=== PATIENT | male | born 1990 | race African-American/Black ===

== ENCOUNTER 2016-11-25 15:25 | Emergency (ER) | payer SELFPAY ==
[2016-11-25 15:25] VITALS: BMI 24.5
== END 2016-11-25 16:30 | disposition left against medical advice (07) ==
LOC: ED 15:25
DX: H02.846 Edema of left eye, unspecified eyelid (principal); Z53.21 Procedure and treatment not carried out due to patient leaving prior to being seen by health care provider

== ENCOUNTER 2016-11-27 02:47 | Emergency (ER) | payer SELFPAY ==
[2016-11-27 02:48] VITALS: BMI 24.5
--- NOTE | 2016-11-27 02:57 | EDPRACDOC ---
- History of Present Illness Onset: 5 DAYS HPI: PT COMPLAINS OF PAINFUL, SWOLLEN, RED AREA LEFT EYEBROW, STATES AREA BECOMING PROGRESSIVELY MORE PAINFULE AND SWOLLEN, STATES NOW EYELIDS ARE SWOLLEN, HAS BEEN HAVING "FEVER" TODAY. PT STATES WOUND HAS BEEN DRAINING "SOME". PT DENIES HEADACHE, N/V/D. HAS NOT TAKEN ANY MEDICATIONS FOR HIS SYMPTOMS. Location: Reports: Face Last Tetanus: Yes Relevent History Of: Reports: None Prior Abscess: Reports: None Pain: Reports: Severe Quality: Reports: Draining, Painful, Red Associated Signs & Symptoms: Reports: Fever. Denies: Chills, Proximal Streaking <Corbin Bee - Last Filed: 11/27/16 02:55> <Hossein Hollingsworth - Last Filed: 11/27/16 04:39> - General Information Chief Complaint: Wound Stated Complaint: INFECTED EYEBROW Time Seen by Provider: 11/27/16 02:52 Home Medications: Home Medications Cephalexin Monohydrate [Keflex] 500 mg PO Q8H #30 cap 09/20/16 Ibuprofen Tablet [Motrin] 600 mg PO Q6H #30 tab 09/20/16 Oxycodone Immediate Release [Oxycodone Immediate Release (OxyIR)] 5 mg PO Q6H PRN #20 tab 10/25/16 Sulfamethoxazole/Trimethoprim [Bactrim Ds Tablet] 1 tab PO BID #14 tab 10/25/16 Cephalexin Monohydrate [Keflex] 500 mg PO QID #28 cap 10/27/16 Oxycodone Immediate Release [Oxycodone Immediate Release (OxyIR)] 5 mg PO Q6H PRN #15 tab 10/27/16 Cephalexin Monohydrate [Keflex] 500 mg PO Q8H #30 cap 11/27/16 Oxycodone HCl [Oxycodone Immediate Release] 10 mg PO Q6H PRN #30 tab 11/27/16 Sulfamethoxazole/Trimethoprim [Bactrim Ds Tablet] 1 tab PO BID #20 tab 11/27/16 Allergies/Adverse Reactions: Allergies Allergy/AdvReac Type Severity Reaction Status Date / Time acetaminophen [From Tylenol] Allergy Unknown Verified 11/27/16 02:58 - Treatment Prior to ED Arrival 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 Ibuprofen/Acetaminophen (Dose/ Ibuprofen 600mg at 0000 Time) EMS Treatment BLS IV No <Hossein Hollingsworth - Last Filed: 11/27/16 04:39> ED Past Medical History - History Reviewed Yes Nurses notes reviewed and agree except as marked No Past Medical History: Yes Patient has no past medical history - Patient Medical History Psychological History: Denies: Depression Surgical History: Reports: Other (R KNEE) - Social Medical History Smoking Status: Heavy tobacco smoker (5 or more cigarettes/day or daily pipe/ cigar) ETOH: None Substance Abuse: None <Corbin Bee - Last Filed: 11/27/16 02:55> EDM Review of Systems - Review of Systems Constitutional: Fever Eyes: negative: Blurred Vision, Double Vision, Discharge, Pain, Redness Ears: negative: Drainage, Pain Throat: negative: Pain Nose: negative: Congestion, Discharge Respiratory: negative: Cough, Shortness of Breath, Wheezing Cardiovascular: negative: Chest Pain, Palpitations Gastrointestinal: negative: Diarrhea, Nausea, Pain, Vomiting Neurological: negative: Dizziness, Headache, Numbness, Weakness Musculoskeletal: No Symptoms Reported Integumentary: Wound <Corbin Bee - Last Filed: 11/27/16 02:55> - Physical Exam Constitutional: Alert (Awake), No apparent distress Oriented to: Time, Person, Place Last recorded Vital Signs: Oxygen Pulse Oxygen Saturation O2 Device Oxygen Flow Rate Fraction of Inspired Oxygen ( FIO2) - HEENT Head: Normal ( normocephalic) Eye Exam: Edema (UPPER AND LOWER LIDS ERYTHEMATOUS AND EDEMATOUS, TENDER TO TOUCH, EOMI) Oropharynx: Normal (Pharynx:Moist without exudate,Gums-no swelling) Tympanic Membrane: Normal ENT EAC: Normal TMJ: Normal Nose: No Symptoms Reported (septum midline) Neck: Normal (FROM, trachea at midline) - Respiratory/Cardiovascular Respiratory: Normal - CTA (BBS clear to auscultation without adventitious sounds ) Cardiovascular: Normal (RRR without murmur, gallop or rub) - Neurologic Memory Impaired: Normal Motor Function: Normal (Normal tone, Pulses 2+ No cyanosis or edema, FROM) Cranial Nerve: Normal (CN II-X11 intact sensation, strength 5/5) Cerebellar: Normal Mood Description: Normal Perception: Normal <Crobin Bee - Last Filed: 11/27/16 02:55> - Physical Exam Last recorded Vital Signs: Last Vital Signs Temp 99.2 F 11/27/16 02:54 Pulse 80 11/27/16 02:54 Resp 20 11/27/16 02:54 BP 160/93 11/27/16 02:54 Pulse Ox 100 11/27/16 02:54 Oxygen Pulse Oxygen Saturation 100 O2 Device Room Air Oxygen Flow Rate Fraction of Inspired Oxygen ( FIO2) <Hossein Hollingsworth - Last Filed: 11/27/16 04:39> ED Abscess/Mass Exam - Integumentary Skin: Warm, Dry Mass: Size (2), Red, Tender, Warm, Firm, Pustule, Extensive Cellulitis ( CELLULITIS EXTENDING TO BOTH LIDS OF LEFT EYE) Lymphatics: Normal <Corbin Bee - Last Filed: 11/27/16 02:55> ED Procedures - Incision and Drainage Informed of risks, benefits and alternatives described.: Yes Informed Consent Signed: Verbal Site: LEFT EYEBROW Indication: Painful Mass Anesthetic: Lidocaine, with Epi Prep: Sterile Full Body Drape, Sterile Local Drape, Betadine Blade Size: 11 Incised Site drained: Reports: Blood, Pus Incised site was: Irrigated, Not Packed with Iodoform <Hossein Hollingsworth - Last Filed: 11/27/16 04:39> - Results 11/27/16 03:10 11/27/16 03:10 Lab Results: WBC 10.1 xk/uL (3.8-10.8) 11/27/16 03:10 RBC 4.54 xM/uL (4.70-6.10) L 11/27/16 03:10 Hgb 13.8 g/dL (14.0-18.0) L 11/27/16 03:10 Hct 40.3 % (42-52) L 11/27/16 03:10 MCV 89 fL (80-94) 11/27/16 03:10 MCH 30.3 pg (27-32) 11/27/16 03:10 MCHC 34.1 g/dl (33-36) 11/27/16 03:10 RDW 13.5 % (11.5-14.5) 11/27/16 03:10 Plt Count 245 xk/uL (130-400) 11/27/16 03:10 MPV 8.4 fL (7.4-10.4) 11/27/16 03:10 Neut % (Auto) 55.1 % (45-76) 11/27/16 03:10 Lymph % (Auto) 32.2 % (17-44) 11/27/16 03:10 [place] % (Auto) 8.9 % (3-10) 11/27/16 03:10 Eos % (Auto) 3.3 % (0-5) 11/27/16 03:10 Baso % (Auto) 0.5 % (0-2) 11/27/16 03:10 Absolute Neuts (auto) 5.56 xk/uL (1.7-8.2) 11/27/16 03:10 Absolute Lymphs (auto) 3.23 xk/uL (0.65-4.75) 11/27/16 03:10 Sodium 140 mEq/L (137-146) 11/27/16 03:10 Potassium 4.0 mEq/L (3.5-5.1) 11/27/16 03:10 Chloride 102 mEq/L (98-107) 11/27/16 03:10 Carbon Dioxide 32 mMOL/L (22-33) 11/27/16 03:10 Anion Gap 10 mEq/L (8-16) 11/27/16 03:10 BUN 5 MG/DL (9-20) L 11/27/16 03:10 Creatinine 0.80 MG/DL (0.66-1.25) 11/27/16 03:10 Estimated GFR (MDRD) > 60 mL/min (>=60) 11/27/16 03:10 Glucose 89 MG/DL (70-99) 11/27/16 03:10 Calculated Osmolality 265 MOs/Kg (270-290) L 11/27/16 03:10 Calcium 8.7 MG/DL (8.4-10.2) 11/27/16 03:10 Corrected Calcium 8.9 MG/DL (8.4-10.2) 11/27/16 03:10 Total Bilirubin 0.3 MG/DL (0.2-1.3) 11/27/16 03:10 AST 26 IU/L (17-59) 11/27/16 03:10 ALT 29 IU/L (21-72) 11/27/16 03:10 Alkaline Phosphatase 62 IU/L (38-126) 11/27/16 03:10 Total Protein 7.5 G/DL (6.3-8.2) 11/27/16 03:10 Albumin 3.8 G/DL (3.5-5.0) 11/27/16 03:10 Lab Results 11/27/16 11/27/16 03:10 03:10 WBC 10.1 RBC 4.54 L Hgb 13.8 L Hct 40.3 L MCV 89 MCH 30.3 MCHC 34.1 RDW 13.5 Plt Count 245 MPV 8.4 Neut % (Auto) 55.1 Lymph % (Auto) 32.2 [place] % (Auto) 8.9 Eos % (Auto) 3.3 Baso % (Auto) 0.5 Absolute Neuts (auto) 5.56 Absolute Lymphs (auto) 3.23 Sodium 140 Potassium 4.0 Chloride 102 Carbon Dioxide 32 Anion Gap 10 BUN 5 L Creatinine 0.80 Estimated GFR (MDRD) > 60 Glucose 89 Calculated Osmolality 265 L Calcium 8.7 Corrected Calcium 8.9 Total Bilirubin 0.3 AST 26 ALT 29 Alkaline Phosphatase 62 Total Protein 7.5 Albumin 3.8 <Hossein Hollingsworth - Last Filed: 11/27/16 04:39> <Corbin Bee - Last Filed: 11/27/16 02:55> Decision Time to Discharge: 04:30 - Departure Yes I personally saw and evaluated the patient. Disposition: Home Education/Counseling Given To: Patient Education/Counseling Given Regarding: Diagnosis, Treatment, Prognosis, Follow Up <Hossein Hollingsworth - Last Filed: 11/27/16 04:39> - Departure Condition: Stable Final Diagnosis: Facial abscess Periorbital cellulitis Qualifiers: Laterality: left Qualified Code(s): L03.213 - Periorbital cellulitis Instructions: Abscess Incision and Drainage (ED) Referrals: None,No Provider [Primary Care Provider] - One Week Zeus Hernandez MD [Staff Physician] - One Week Prescriptions: Cephalexin Monohydrate [Keflex] 500 mg PO Q8H #30 cap Oxycodone HCl [Oxycodone Immediate Release] 10 mg PO Q6H PRN #30 tab PRN Reason: Pain Sulfamethoxazole/Trimethoprim [Bactrim Ds Tablet] 1 tab PO BID #20 tab Additional Instructions: RETURN IN 2 DAYS FOR WOUND CHECK AND PACKING REMOVAL
[2016-11-27] MEDS ORDERED: ONDANSETRON HCL 4 MG/2 ML VIAL IV ONE (02:59)
[2016-11-27] MEDS ORDERED: MORPHINE 4 MG/ML INJECTION IV ONE (02:59)
[2016-11-27] MEDS ORDERED: NS 1,000 ML IV ONE (02:59)
[2016-11-27] MEDS ORDERED: Pharmacy Review for Metformin - IV Contrast Given SCH (03:00)
[2016-11-27 03:12] VITALS: TEMP 99.2
[2016-11-27 03:23] LABS: AUTOMATED BASOPHIL 0.5 % (0-2); AUTOMATED EOSINOPHIL 3.3 % (0-5); AUTOMATED LYMPH 32.2 % (17-44); AUTOMATED MONOCYTE 8.9 % (3-10); AUTOMATED NEUTROPHIL 55.1 % (45-76); MPV 8.4 fL (7.4-10.4)
[2016-11-27 03:38] LABS: BLOOD UREA NITROGEN 5 MG/DL (9-20); CALC CORRECTED 8.9 MG/DL (8.4-10.2); CALCIUM 8.7 MG/DL (8.4-10.2); CALCULATED OSMOLALITY 265 MOs/Kg (270-290); CHLORIDE 102 mEq/L (98-107); GLUCOSE 89 MG/DL (70-99); SODIUM LEVEL 140 mEq/L (137-146); TOTAL PROTEIN 7.5 G/DL (6.3-8.2)
[2016-11-27] MEDS ORDERED: Lidocaine 2%-Epinephrine 1:100,000 20ml vial INF ONE (03:57)
--- NOTE | 2016-11-27 04:14 | DIRPT ---
CLINICAL DATA: LEFT supraorbital swelling for 5 days, assess for abscess. EXAM: CT MAXILLOFACIAL WITH CONTRAST TECHNIQUE: Multidetector CT imaging of the maxillofacial structures was performed with intravenous contrast. Multiplanar CT image reconstructions were also generated. A small metallic BB was placed on the right bahai in order to reliably differentiate right from left. CONTRAST: 100 cc Isovue 370 COMPARISON: None. FINDINGS: LEFT periorbital soft tissue swelling, with fat stranding. Superimposed 18 x 11 mm (transverse by AP) faintly rim enhancing fluid collection, within 2 mm of the skin surface. No subcutaneous gas or radiopaque foreign bodies. Enhancing preseptal soft tissue without postseptal extent. Ocular globes intact, lenses are located. Preservation of postseptal fat. Normal appearance of the optic nerve sheath complexes and extra-ocular muscles. Included intracranial contents are normal. No destructive bony lesions or facial fracture. Scattered dental caries. Paranasal sinuses and imaged mastoid air cells are well aerated. IMPRESSION: LEFT periorbital cellulitis with superimposed 18 x 11 mm abscess, 2 mm deep to the skin surface. No postseptal inflammation. Electronically Signed By: Danyell Adams M.D. On: 11/27/2016 04:11
[2016-11-27] MEDS ORDERED: HYDROmorphone 1 MG INJECTION ONE ×2 (04:22→04:27)
[2016-11-27 06:14] VITALS: BP 129/62; PULSE 89
== END 2016-11-27 06:30 | disposition home or self-care (01) ==
LOC: ED 02:47
DX: L02.01 Cutaneous abscess of face (principal); L03.213 Periorbital cellulitis
CPT/HCPCS: 10060; 36415; 70487; 80053; 85025; 87070; 87075; 87077; 87186; 96361; 96365; 96366; 96375; 96376; 99283; A9698; J1170; J2270; J2405; J3370; J3490; J7060

== ENCOUNTER 2016-12-03 15:42 | Observation (INO) | payer SELFPAY ==
[2016-12-03 16:11] VITALS: BMI 23.5
[2016-12-03 16:26] LABS: ALL NEG? NO
[2016-12-03 16:29] LABS: AUTOMATED BASOPHIL 0.5 % (0-2); AUTOMATED EOSINOPHIL 2.4 % (0-5); AUTOMATED LYMPH 39.2 % (17-44); AUTOMATED MONOCYTE 9.6 % (3-10); AUTOMATED NEUTROPHIL 48.3 % (45-76)
[2016-12-03 16:44] LABS: MDMA* NEG (NEGATIVE); METHAMPHETAMINES *POSITIVE* (NEGATIVE); OXYCODONE NEG (NEGATIVE)
[2016-12-03 17:00] LABS: LEUKOCYTES/URINE NEG (NEGATIVE); NITRITE/URINE NEG (NEGATIVE); URINE OCCULT BLOOD NEG (NEG/TRACE)
[2016-12-03 17:02] LABS: BLOOD UREA NITROGEN 9 MG/DL (9-20); CALCIUM 9.6 MG/DL (8.4-10.2); CALCULATED OSMOLALITY 271 MOs/Kg (270-290); CHLORIDE 106 mEq/L (98-107); GLUCOSE 81 MG/DL (70-99); SODIUM LEVEL 142 mEq/L (137-146); TOTAL PROTEIN 7.6 G/DL (6.3-8.2)
[2016-12-03 17:02] LABS: AMORPHOUS 3+; RBC/URINE 0-2 (0-2); WBC/URINE 0-2 (0-2)
[2016-12-03 17:10] LABS: ETOH-MGDL < 10 mg/dL
--- NOTE | 2016-12-03 18:40 | EDPRACDOC ---
- General Information Chief Complaint: Psychiatric Illness Stated Complaint: IVC PSYCH Time Seen by Provider: 12/03/16 18:24 Information Source: Patient Mode of Arrival: Law Enforcement Home Medications: Home Medications Cephalexin Monohydrate [Keflex] 500 mg PO Q8H #30 cap 11/27/16 Oxycodone HCl [Oxycodone Immediate Release] 10 mg PO Q6H PRN #30 tab 11/27/16 Sulfamethoxazole/Trimethoprim [Bactrim Ds Tablet] 1 tab PO BID #20 tab 11/27/16 Allergies/Adverse Reactions: Allergies Allergy/AdvReac Type Severity Reaction Status Date / Time acetaminophen [From Tylenol] Allergy Unknown Verified 11/27/16 02:58 - History of Present Illness Onset: unknown HPI: PT PRESENTS TO ED BY WHIT FROM [facility] WITH IVC PAPERS STATING SUICIDAL IDEATIONS WITH PLAN TO OVERDOSE. PT STATES THE INITIAL THING THAT GOT HIM ATTENTION WAS HE TOOK A VIDEO OF HIMSELF CUTTING HIS RIGHT FOREARM AND SENT IT TO HIS FAMILY MEMBERS ON FACEBOOK, THAT GOT THE DEVICE PROCESSING ENGINEER CALLED AND HE WAS TAKEN TO [facility] AND EVALUATED, THEN IVC DUE TO SI. PT TELLS ME THAT HE HAS BEEN USING IV PAIN MEDS AND EXPERIMENTING TO THE POINT HE BLACKS OUT TO SEE HOW MUCH IT WOULD TAKE TO OVERDOSE. Reason for Seeking Treatment: 911 Call Presents With: Reports: Depression, Anxiety, Unclear Thinking, Suicidal Ideation Expresses: Reports: Suicidal Intent, Suicidal Plan Suicidal Plan: Reports: Overdose Stressors: Reports: Relationships Relevant History: Reports: Depression, Anxiety Medication Compliance: N/A Able to Care for Self: No Able to Control Self: No Associated Signs and Symptoms: Reports: Anger, Depression, Hopeless, Other ( NARCOTIC USE) ED Past Medical History - History Reviewed Yes Nurses notes reviewed and agree except as marked Travel Outside of [place] in the Last 3 Months?: No - Patient Medical History Psychological History: Reports: Depression, Anxiety, Substance Use Disorder Surgical History: Reports: Other (R KNEE) - Social Medical History Smoking Status: Heavy tobacco smoker (5 or more cigarettes/day or daily pipe/ cigar) ETOH: None Substance Abuse: None Lives With: Other Lives In: Home EDM Review of Systems - Review of Systems ROS Negative Except as Marked: Yes All systems reviewed and were negative except as marked Constitutional: No Symptoms Reported. negative: Fever, Chills, Weakness, Fatigue, Loss of Appetite Eyes: No Symptoms Reported. negative: Redness, Blurred Vision, Double Vision, Discharge, Pain, Light Sensitive, Photophobia Ears: No Symptoms Reported. negative: Pain, Hearing Loss, Drainage, Ear Pulling Throat: No Symptoms Reported. negative: Pain, Swelling Nose: No Symptoms Reported. negative: Congestion, Bleeding, Discharge, Injection, Swelling, Deformity, Ecchymosis, Tender, Abrasion, Laceration Mouth: No Symptoms Reported. negative: Pain, Drooling Respiratory: No Symptoms Reported. negative: Cough, Brassy Cough, Barky Cough, Shortness of Breath, Wheezing, Hemoptysis Cardiovascular: No Symptoms Reported. negative: Chest Pain, Palpitations, Syncope, Edema, Orthopnea, PND, Skin Mottling, Cyanosis Gastrointestinal: No Symptoms Reported. negative: Pain, Constipation, Nausea, Vomiting, Diarrhea, Melena, Formula Intolerance Genitourinary: No Symptoms Reported. negative: Dysuria, Hematuria, Frequency, Discharge, Bleeding, Testicular Pain, Neurological: No Symptoms Reported. negative: Headache, Dizziness, Seizure, Numbness, Weakness, Speech Difficulty, Gait Difficulty Musculoskeletal: No Symptoms Reported. negative: Neck, Chestwall, Ribs, Back, Shoulder, Arm, Elbow, Forearm, Wrist, Hand, Pelvis, Hip, Femur, Knee, Leg, Ankle , Foot Integumentary: Other (HEAING WOUNDS TO RIGHT FOREARM FROM CUTTING). negative: Bruising, Itching, Rash, Wound Allergic/Immunologic: No Symptoms Reported. negative: Hives, Itching Hematologic: No Symptoms Reported. negative: Lymphadenopathy, Easy Bruising, Easy Bleeding Endocrine: No Symptoms Reported. negative: Weight Gain, Weight Loss Psychiatric: Anxiety, Depression, Suicidal. negative: Hallucinations, Insomnia - Physical Exam Constitutional: No apparent distress, Alert (Awake) Oriented to: Time, Person, Place Last recorded Vital Signs: Last Vital Signs Temp 97.8 F 12/03/16 16:09 Pulse 72 12/03/16 18:14 Resp 18 12/03/16 18:14 BP 138/71 12/03/16 18:14 Pulse Ox 99 12/03/16 18:14 Oxygen Pulse Oxygen Saturation 99 O2 Device Room Air Oxygen Flow Rate Fraction of Inspired Oxygen ( FIO2) - HEENT Head: Normal ( normocephalic) Eye Exam: Normal (PERRL, EOMI, Sclera white) Oropharynx: Normal (Pharynx:Moist without exudate,Gums-no swelling) Tympanic Membrane: Normal ENT EAC: Normal TMJ: Normal Nose: No Symptoms Reported (septum midline) Neck: Normal (FROM, trachea at midline) - Respiratory/Cardiovascular Respiratory: Normal - CTA (BBS clear to auscultation without adventitious sounds ) Cardiovascular: Normal (RRR without murmur, gallop or rub) - GI Auscultation: Normal (NABS) Palpation: Normal (Soft,No rebound or guarding, non distended) Tenderness: Non tender Gregorio's Sign: Negative - Bladder: Normal - Musculoskeletal Back: Normal (Non-Tender) Extremities: Normal (Normal tone, Pulses 2+ No cyanosis or edema, FROM) - Integumentary Skin: Normal, Warm, Dry Lymphatics: Normal (no adenopathy) - Neurologic Memory Impaired: Normal Motor Function: Normal (Normal tone, Pulses 2+ No cyanosis or edema, FROM) Cranial Nerve: Normal (CN II-X11 intact sensation, strength 5/5) Cerebellar: Normal Mood Description: Depressed, Flat Thought: Coherent Perception: Normal Initial Evaluation Apperance: Stated Age Attitude: Cooperative Mood: Sad Affect: Congruent w/ mood, Depressed Insight: Impaired Judgement: Impaired Depressive Symptoms: Reports: Poor Energy, Sadness, Sleep changes, Worthlessness Delusion Description: Reports: Not Present Hallucination Type: Reports: None Hallucinations Severity: Reports: None Hallucinations affecting more than one sensory system: No Recommend /or Refer: Involuntary Commitment - Differential Diagnosis Bipolar disorder, Conversion disorder, Depression, Homicidal, Substance abuse, Suicidal - Results 12/03/16 16:13 12/03/16 16:13 WBC 7.9 xk/uL (3.8-10.8) 12/03/16 16:13 RBC 4.68 xM/uL (4.70-6.10) L 12/03/16 16:13 Hgb 14.1 g/dL (14.0-18.0) 12/03/16 16:13 Hct 41.7 % (42-52) L 12/03/16 16:13 MCV 89 fL (80-94) 12/03/16 16:13 MCH 30.0 pg (27-32) 12/03/16 16:13 MCHC 33.7 g/dl (33-36) 12/03/16 16:13 RDW 13.7 % (11.5-14.5) 12/03/16 16:13 Plt Count 290 xk/uL (130-400) 12/03/16 16:13 MPV 8.0 fL (7.4-10.4) 12/03/16 16:13 Neut % (Auto) 48.3 % (45-76) 12/03/16 16:13 Lymph % (Auto) 39.2 % (17-44) 12/03/16 16:13 [place] % (Auto) 9.6 % (3-10) 12/03/16 16:13 Eos % (Auto) 2.4 % (0-5) 12/03/16 16:13 Baso % (Auto) 0.5 % (0-2) 12/03/16 16:13 Absolute Neuts (auto) 3.79 xk/uL (1.7-8.2) 12/03/16 16:13 Absolute Lymphs (auto) 3.08 xk/uL (0.65-4.75) 12/03/16 16:13 Sodium 142 mEq/L (137-146) 12/03/16 16:13 Potassium 4.1 mEq/L (3.5-5.1) 12/03/16 16:13 Chloride 106 mEq/L (98-107) 12/03/16 16:13 Carbon Dioxide 27 mMOL/L (22-33) 12/03/16 16:13 Anion Gap 13 mEq/L (8-16) 12/03/16 16:13 BUN 9 MG/DL (9-20) 12/03/16 16:13 Creatinine 0.80 MG/DL (0.66-1.25) 12/03/16 16:13 Estimated GFR (MDRD) > 60 mL/min (>=60) 12/03/16 16:13 Glucose 81 MG/DL (70-99) 12/03/16 16:13 Calculated Osmolality 271 MOs/Kg (270-290) 12/03/16 16:13 Calcium 9.6 MG/DL (8.4-10.2) 12/03/16 16:13 Total Bilirubin 0.3 MG/DL (0.2-1.3) 12/03/16 16:13 AST 28 IU/L (17-59) 12/03/16 16:13 ALT 43 IU/L (21-72) 12/03/16 16:13 Alkaline Phosphatase 61 IU/L (38-126) 12/03/16 16:13 Total Protein 7.6 G/DL (6.3-8.2) 12/03/16 16:13 Albumin 4.2 G/DL (3.5-5.0) 12/03/16 16:13 Urine Color Yellow 12/03/16 16:15 Urine Clarity [place] 12/03/16 16:15 Urine pH 6.0 (5.0-8.0) 12/03/16 16:15 Ur Specific [place] 1.020 (1.003-1.035) 12/03/16 16:15 Urine Protein Neg (NEG/TRACE) 12/03/16 16:15 Urine Glucose (UA) Neg (NEGATIVE) 12/03/16 16:15 Urine Ketones Neg (NEGATIVE) 12/03/16 16:15 Urine Occult Blood Neg (NEG/TRACE) 12/03/16 16:15 Urine Nitrite Neg (NEGATIVE) 12/03/16 16:15 Urine Bilirubin Neg (NEGATIVE) 12/03/16 16:15 Urine Urobilinogen <2.0 MG/DL (0-1) 12/03/16 16:15 Ur Leukocyte Esterase Neg (NEGATIVE) 12/03/16 16:15 Urine RBC 0-2 (0-2) 12/03/16 16:15 Urine WBC 0-2 (0-2) 12/03/16 16:15 Ur Epithelial Cells Occ 12/03/16 16:15 Amorphous Sediment 3+ 12/03/16 16:15 Urine Bacteria Few (NEG/FEW) 12/03/16 16:15 Urine Opiates Screen Neg (NEGATIVE) 12/03/16 16:15 Ur Oxycodone Screen Neg (NEGATIVE) 12/03/16 16:15 Urine Methadone Screen Neg (NEGATIVE) 12/03/16 16:15 Ur Barbiturates Screen Neg (NEGATIVE) 12/03/16 16:15 Ur Tricyclics Screen Neg (NEGATIVE) 12/03/16 16:15 Ur Phencyclidine Scrn Neg (NEGATIVE) 12/03/16 16:15 Ur Amphetamines Screen *positive* (NEGATIVE) H 12/03/16 16:15 U Methamphetamines Scrn *positive* (NEGATIVE) H 12/03/16 16:15 Urine MDMA Screen Neg (NEGATIVE) 12/03/16 16:15 U Benzodiazepines Scrn Neg (NEGATIVE) 12/03/16 16:15 Urine Cocaine Screen *positive* (NEGATIVE) H 12/03/16 16:15 Ur THC Screen Neg (NEGATIVE) 12/03/16 16:15 Plasma/Serum Ethyl Alc % (<0.01) 12/03/16 16:13 Lab Results 12/03/16 12/03/16 12/03/16 16:15 16:15 16:13 WBC 7.9 RBC 4.68 L Hgb 14.1 Hct 41.7 L MCV 89 MCH 30.0 MCHC 33.7 RDW 13.7 Plt Count 290 MPV 8.0 Neut % (Auto) 48.3 Lymph % (Auto) 39.2 [place] % (Auto) 9.6 Eos % (Auto) 2.4 Baso % (Auto) 0.5 Absolute Neuts (auto) 3.79 Absolute Lymphs (auto) 3.08 Sodium Potassium Chloride Carbon Dioxide Anion Gap BUN Creatinine Estimated GFR (MDRD) Glucose Calculated Osmolality Calcium Total Bilirubin AST ALT Alkaline Phosphatase Total Protein Albumin Urine Color Yellow Urine Clarity [place] Urine pH 6.0 Ur Specific [place] 1.020 Urine Protein Neg Urine Glucose (UA) Neg Urine Ketones Neg Urine Occult Blood Neg Urine Nitrite Neg Urine Bilirubin Neg Urine Urobilinogen <2.0 Ur Leukocyte Esterase Neg Urine RBC 0-2 Urine WBC 0-2 Ur Epithelial Cells Occ Amorphous Sediment 3+ Urine Bacteria Few Urine Opiates Screen Neg Ur Oxycodone Screen Neg Urine Methadone Screen Neg Ur Barbiturates Screen Neg Ur Tricyclics Screen Neg Ur Phencyclidine Scrn Neg Ur Amphetamines Screen *positive* H U Methamphetamines Scrn *positive* H Urine MDMA Screen Neg U Benzodiazepines Scrn Neg Urine Cocaine Screen *positive* H Ur THC Screen Neg Plasma/Serum Ethyl Alc 12/03/16 16:13 WBC RBC Hgb Hct MCV MCH MCHC RDW Plt Count MPV Neut % (Auto) Lymph % (Auto) [place] % (Auto) Eos % (Auto) Baso % (Auto) Absolute Neuts (auto) Absolute Lymphs (auto) Sodium 142 Potassium 4.1 Chloride 106 Carbon Dioxide 27 Anion Gap 13 BUN 9 Creatinine 0.80 Estimated GFR (MDRD) > 60 Glucose 81 Calculated Osmolality 271 Calcium 9.6 Total Bilirubin 0.3 AST 28 ALT 43 Alkaline Phosphatase 61 Total Protein 7.6 Albumin 4.2 Urine Color Urine Clarity Urine pH Ur Specific [place] Urine Protein Urine Glucose (UA) Urine Ketones Urine Occult Blood Urine Nitrite Urine Bilirubin Urine Urobilinogen Ur Leukocyte Esterase Urine RBC Urine WBC Ur Epithelial Cells Amorphous Sediment Urine Bacteria Urine Opiates Screen Ur Oxycodone Screen Urine Methadone Screen Ur Barbiturates Screen Ur Tricyclics Screen Ur Phencyclidine Scrn Ur Amphetamines Screen U Methamphetamines Scrn Urine MDMA Screen U Benzodiazepines Scrn Urine Cocaine Screen Ur THC Screen Plasma/Serum Ethyl Alc - Departure Disposition: Admit to Condition: Stable Final Diagnosis: Moderate major depression, single episode, Suicidal ideations, Narcotic abuse Instructions: Depression (GEN), Narcotic Abuse (ED), Suicide Prevention for Adults (ED) Education/Counseling Given To: Patient Education/Counseling Given Regarding: Diagnosis, Treatment, Prognosis, Follow Up Referrals: None,No Provider [Primary Care Provider] - One Week Prescriptions: No Action Cephalexin Monohydrate [Keflex] 500 mg PO Q8H #30 cap Oxycodone HCl [Oxycodone Immediate Release] 10 mg PO Q6H PRN #30 tab PRN Reason: Pain Sulfamethoxazole/Trimethoprim [Bactrim Ds Tablet] 1 tab PO BID #20 tab
[2016-12-03] MEDS ORDERED: IBUPROFEN 400 MG TAB PO PRN (18:49)
[2016-12-03] MEDS ORDERED: PROMETHAZINE 25 MG TAB PO PRN (18:49)
[2016-12-03] MEDS ORDERED: ZOLPIDEM TARTRATE 5 MG TAB PO PRN (18:49)
[2016-12-03] MEDS ORDERED: MAGNESIUM HYDROXIDE 30 ML BOTTLE PO PRN (18:49)
[2016-12-03] MEDS ORDERED: ONDANSETRON HCL 4 MG ODT TAB PO PRN (18:49)
[2016-12-03] MEDS ORDERED: LORAZEPAM 1 MG TAB PO PRN (18:49)
[2016-12-03] MEDS ORDERED: BISACODYL 5 MG TAB PO PRN (18:49)
[2016-12-03] MEDS ORDERED: GUAIFENESIN 200 MG/10 ML UDC PO PRN (18:49)
[2016-12-03] MEDS ORDERED: NICOTINE 21 MG PATCH TOP SCH (19:00)
[2016-12-03] MEDS ORDERED: DIAZEPAM 5 MG TAB PO ONE (20:15)
[2016-12-03] MEDS ORDERED: DICYCLOMINE 10 MG/5 ML SYRUP PO ONE (21:58)
[2016-12-03] MEDS ORDERED: DICYCLOMINE 10 MG CAP PO ONE (23:00)
--- NOTE | 2016-12-04 08:16 | EDTUNOTE ---
Initial Evaluation Apperance: Stated Age Attitude: Cooperative Mood: Sad Affect: Congruent w/ mood, Depressed Insight: Impaired Judgement: Impaired Depressive Symptoms: Reports: Poor Energy, Sadness, Sleep changes, Worthlessness Delusion Description: Reports: Not Present Hallucination Type: Reports: None Hallucinations Severity: Reports: None Hallucinations affecting more than one sensory system: No Recommend /or Refer: Involuntary Commitment - SOAP Note Patient Problems: Active Problems Moderate major depression, single episode (Acute) Narcotic abuse (Acute) F11.10 Suicidal ideations (Acute) R45.851 SOAP Note: S: pt calm, eating breakfast. has no complaints. O: VS nml A: Moderate major depression, single episode (Acute), Narcotic abuse (Acute) F11.10, Suicidal ideations (Acute) R45.851 P: will continue to monitor pending disposition
[2016-12-04 11:39] VITALS: TEMP 97.4
[2016-12-04 14:25] VITALS: BP 127/69; PULSE 88
== END 2016-12-04 18:59 ==
LOC: ED 15:42 → EDINP 18:49 → TUOBSINP 12-04 08:15
PROVIDERS: ADMIT Emergency Medicine; ATTEND Emergency Medicine
DX: F32.1 Major depressive disorder, single episode, moderate (principal); R45.851 Suicidal ideations; F11.10 Opioid abuse, uncomplicated; F17.210 Nicotine dependence, cigarettes, uncomplicated; Z79.899 Other long term (current) drug therapy
CPT/HCPCS: 36415; 80053; 80307; 81001; 85025; 86592; 99285; G0378; J3490

== ENCOUNTER 2016-12-17 03:38 | Inpatient (IN) | payer SELFPAY ==
--- NOTE | 2016-12-17 03:52 | EDPRACDOC ---
- General Information Stated Complaint: OVERDOSE Time Seen by Provider: 12/17/16 03:39 Information Source: Patient, Family Home Medications: Home Medications Cephalexin Monohydrate [Keflex] 500 mg PO Q8H #30 cap 11/27/16 Oxycodone HCl [Oxycodone Immediate Release] 10 mg PO Q6H PRN #30 tab 11/27/16 Sulfamethoxazole/Trimethoprim [Bactrim Ds Tablet] 1 tab PO BID #20 tab 11/27/16 Allergies/Adverse Reactions: Allergies Allergy/AdvReac Type Severity Reaction Status Date / Time acetaminophen [From Tylenol] Allergy Unknown Verified 11/27/16 02:58 - History of Present Illness Ingestion: Reports: Intentional Drug Ingested: WELLBUTRIN Drug Amount Ingested: "WHOLE BOTTLE" Suicidal Intent: Reports: None Relevant History: Reports: Depression, Inpatient Treatment, Outpatient Treatment Medication Compliance?: Yes Reason for Seeking Treatment: Found with AMS (PT WAS RUNNING THROUGH THE [place] IN HIS UNDERWEAR, THEN WALKED INTO A MANUFACTURING PLANT BREAK-ROOM. FOUND CONFUSED, 911 CALLED.) Symptom Severity: Moderate Vomited After Ingestion?: No Associated Signs and Symptoms: Reports: Other ED Past Medical History - History Reviewed Yes Nurses notes reviewed and agree except as marked - Patient Medical History Psychological History: Reports: Depression, Anxiety, Substance Use Disorder Surgical History: Reports: Other (R KNEE) - Social Medical History Smoking Status: Heavy tobacco smoker (5 or more cigarettes/day or daily pipe/ cigar) Social History: Reports: Other Substance Use EDM Review of Systems - Review of Systems ROS Negative Except as Marked: Yes All systems reviewed and were negative except as marked - Physical Exam Constitutional: No apparent distress, Alert, Confused (MILD), Other (COLD / SHIVERING) Oriented to: Person, Place Last recorded Vital Signs: Oxygen Pulse Oxygen Saturation O2 Device Oxygen Flow Rate Fraction of Inspired Oxygen ( FIO2) - HEENT Head: Normal Oropharynx: Normal. negative: Membranes Dry Neck: Normal. negative: Limited ROM, Lymphadenopathy, Meningeal Signs - Respiratory/Cardiovascular Respiratory: Normal - CTA Cardiovascular: Normal - GI Auscultation: Normal Palpation: Normal Tenderness: Non tender - Musculoskeletal Back: Normal Extremities: Normal - Integumentary Skin: Cool, Dry - Neurologic Memory Impaired: Normal, Short-term Motor Function: Normal Cerebellar: Normal. negative: Ataxia, Past-Pointing, Tremor Mood Description: Calm Thought: Coherent - Results 12/17/16 03:50 12/17/16 03:50 - EKG EKG #1 EKG Time: 03:54 -: Yes EKG interpreted by me Rate: bpm: 91 Page: Normal Rhythm: NSR Block: None Hypertrophy: None ST: Nonsp, Normal - Additional Information WELLBUTRIN OVERDOSE HAS HIGH SEIZURE RATE, REC OBS. - Departure Disposition: Admit IP To This Hospital Condition: Stable Final Diagnosis: WELLBUTRIN OVERDOSE, Psychosis, Overdose Education/Counseling Given To: Patient, Family Member Education/Counseling Given Regarding: Diagnosis, Treatment, Prognosis Referrals: Corbin Givens MD [Primary Care Provider] - As Needed Prescriptions: No Action Cephalexin Monohydrate [Keflex] 500 mg PO Q8H #30 cap Oxycodone HCl [Oxycodone Immediate Release] 10 mg PO Q6H PRN #30 tab PRN Reason: Pain Sulfamethoxazole/Trimethoprim [Bactrim Ds Tablet] 1 tab PO BID #20 tab Decision to Admit Time: 05:44 Decision to admit date: 12/17/16 Decision to admit: from ED - Physician Consulted Hospitalist Time Called: 05:44 Provider Called: Nishant Wild Time Ice Skating Instructor Returned Call: 05:44
[2016-12-17 03:56] VITALS: BMI 23.3
[2016-12-17 04:00] LABS: AUTOMATED BASOPHIL 0.4 % (0-2); AUTOMATED EOSINOPHIL 0.3 % (0-5); AUTOMATED LYMPH 9.2 % (17-44); AUTOMATED MONOCYTE 7.8 % (3-10); AUTOMATED NEUTROPHIL 82.3 % (45-76)
[2016-12-17 04:09] LABS: BLOOD UREA NITROGEN 9 MG/DL (9-20); CALCIUM 9.5 MG/DL (8.4-10.2); CALCULATED OSMOLALITY 272 MOs/Kg (270-290); CHLORIDE 101 mEq/L (98-107); ETOH-MGDL < 10 mg/dL; GLUCOSE 62 mg/dL (70-99); SODIUM LEVEL 143 mEq/L (137-146); TOTAL PROTEIN 8.6 G/DL (6.3-8.2)
[2016-12-17 04:50] LABS: ALL NEG? NO
[2016-12-17 04:59] LABS: MDMA* NEG (NEGATIVE); METHAMPHETAMINES NEG (NEGATIVE); OXYCODONE *POSITIVE* (NEGATIVE)
--- NOTE | 2016-12-17 06:07 | HISTPHYS ---
- Chief Complaint overdose - History of Present Illness PRIMARY CARE PROVIDER: Dr. Valles at [facility] HPI: The patient is a 26 yo man with a history of polysubstance abuse who presents after taking a handful of Wellbutrin. Between midnight and 2 am (he is not sure of the exact time), the patient took a handful of Wellbutrin (he thinks about 6 or 7 tablets of extended release 150 mg) after an argument with his girlfriend. He said he took them because he felt , "everyone is against me." He states he was not trying to hurt himself. He denies suicidal/homicidal ideation at this time. After he took the Wellbutrin, he ran outside, fell into a river, lost his shoes, started shivering or having a tremor. He states he briefly fell to the ground and thinks he passed out, then started shaking all over; he remembers the event and it happened only once. He has never had any seizure-like activity before. There was a report that he was running around outside in his underwear, but he disputes that. Onset: Today between midnight at 2 am. Duration: one episode. Location: reports passing out and shaking all over x 1. Radiation: none. Character: episode of shaking. Alleviated by: Nothing. Exacerbated by: Nothing. Associated Symptoms: Tremor. Shaking. Possible brief syncope. Vomited x 1. No other new symptoms. Chronic chest pain x 1 year. Mild shortness of breath that is chronic. Frequent headaches/migraines. Treatments: none at home except usual medications. - Medical History Systemic History: Reports: Other (Cyst in his left eyelid 11/2016.) Psychological History: Reports: Depression, Anxiety, Bipolar Disorder (possible diagnosis), Substance Use Disorder - Surgical History Reports: Other (R KNEE) - Medictions/Allergies Allergies acetaminophen [From Tylenol] Allergy (Verified 11/27/16 02:58) Unknown Current Medication List: Reviewed Home Medications Cephalexin Monohydrate [Keflex] 500 mg PO Q8H #30 cap 11/27/16 Oxycodone HCl [Oxycodone Immediate Release] 10 mg PO Q6H PRN #30 tab 11/27/16 Sulfamethoxazole/Trimethoprim [Bactrim Ds Tablet] 1 tab PO BID #20 tab 11/27/16 - Family History Reports: Cardiac Disorders (PGF: MO/CAD.), Other (No family history of seizures. Mother: back problems.) Patient does not know any other family history. - Social History Smoking Status: Heavy tobacco smoker (5 or more cigarettes/day or daily pipe/ cigar) (3 ppd. Started at 23 yo.) Social History: Reports: Other Substance Use (Patient denies but has positive drug screens: opiates, benzodiazepines.). Denies: Alcohol Use (The patient is an 83-year-old man with known COPD) - Review of Systems GENERAL: No Fever, chills, or diaphoresis. Positive for fatigue/malaise. HEENT: No ear pain or discharge. No nasal discharge or bleeding. No throat pain or swelling. No eye pain or eye redness. RESPIRATORY: No cough, wheezing. Chronic mild shortness of breath. CARDIOVASCULAR: Chronic chest pain x 1 year; substernal, radiates to left chest , 9/10, sharp, associated with mild shortness of breath. No palpitations. GI: Vomited x 1. No abdominal pain, nausea, diarrhea, constipation, or bloody stool. NEUROLOGICAL: Headache (has them frequently). Tremor. No focal weakness. INTEGUMENT: no rashes, itching, or lesions. LYMPHATIC SYSTEM: no lymph node swelling or pain. MUSCULOSKELETAL: no new pain or joint swelling. GENITOURINARY: No dysuria or hematuria. ENDOCRINE: No polyuria or polydipsia. HEME: No chronic anemia, bleeding, or easy bruising. - Physical Exam Vital Signs: Initial Vitals Temperature 97.5 F 12/17/16 03:49 Pulse Rate 99 12/17/16 03:49 Respiratory Rate 16 12/17/16 03:49 Blood Pressure 160/94 12/17/16 03:49 Pulse Oxygen Saturation 97 12/17/16 03:49 Vital Signs - 24 hr 12/17/16 12/17/16 12/17/16 03:49 03:56 04:11 Temperature 97.5 F Pulse Rate 99 97 84 Respiratory 16 18 20 Rate Blood Pressure 160/94 156/86 145/89 Pulse Oxygen 97 97 97 Saturation 12/17/16 12/17/16 12/17/16 04:41 05:11 06:03 Temperature Pulse Rate 82 87 83 Respiratory 20 16 16 Rate Blood Pressure 130/75 116/75 123/67 Pulse Oxygen 96 99 99 Saturation Weight: 65.7 kg Height: 5'6" BMI: 23.4 - Other Exam Other Exam Findings: GENERAL: Ill-appearing, well nourished, in acute distress. HEENT: Normocephalic, atraumatic; pupils equal and round. Nares patent, without discharge or bleeding. No oropharyngeal lesions or erythema. Mucous membranes are dry. NECK: is supple, no masses, trachea midline. RESPIRATORY: Clear to auscultation bilaterally. Chest wall movements are symmetric. No use of accessory muscles to breathe. No wheezing, rales, rhonchi. CARDIOVASCULAR: Normal S1, S2. No murmurs, rubs, or gallops. PMI non-displaced. Carotids: no carotid bruits. No bradycardia or tachycardia. DP pulses 2+ bilaterally. GI: soft, nontender, non-distended, normal active bowel sounds. No hepatosplenomegaly. INTEGUMENT: Clean, dry, and intact. No rashes. No lesions. MUSCULOSKELETAL: Moving all extremities. No cyanosis. No clubbing. Edema: none bilaterally. NEUROLOGICAL: Cranial nerves 2-12 grossly intact. Motor 5/5 throughout. No tremor. Reflexes: 2+ bilaterally. Babinski: toes downgoing bilaterally. Intact Finger to nose. Sensory grossly intact to light touch. Intact rapid alternating movements bilaterally. No pronator drift. PSYCHIATRIC: Fully oriented. Anxious affect. LYMPHATIC: No cervical lymphadenopathy. No supraclavicular lymphadenopathy. - Lab Results Laboratory Results - last 24 hr 12/17/16 12/17/16 12/17/16 03:50 03:50 04:46 WBC 16.4 H RBC 4.78 Hgb 14.1 Hct 41.7 L MCV 87 MCH 29.5 MCHC 33.8 RDW 13.8 Plt Count 345 MPV 8.0 Neut % (Auto) 82.3 H Lymph % (Auto) 9.2 L [place] % (Auto) 7.8 Eos % (Auto) 0.3 Baso % (Auto) 0.4 Absolute Neuts (auto) 13.45 H Absolute Lymphs (auto) 1.48 Sodium 143 Potassium 3.1 L Chloride 101 Carbon Dioxide 31 Anion Gap 14 BUN 9 Creatinine 1.10 Estimated GFR (MDRD) > 60 Glucose 62 L Calculated Osmolality 272 Calcium 9.5 Total Bilirubin 0.6 AST 55 ALT 34 Alkaline Phosphatase 68 Total Protein 8.6 H Albumin 4.6 Salicylates < 1.0 Urine Opiates Screen Neg Ur Oxycodone Screen *positive* H Urine Methadone Screen Neg Acetaminophen < 10.0 Ur Barbiturates Screen Neg Ur Tricyclics Screen Neg Ur Phencyclidine Scrn Neg Ur Amphetamines Screen Neg U Methamphetamines Scrn Neg Urine MDMA Screen Neg U Benzodiazepines Scrn *positive* H Urine Cocaine Screen Neg Ur THC Screen Neg Plasma/Serum Ethyl Alc - Diagnostic Findings EK bpm. Normal sinus rhythm. Short MI interval. QTc 426 ms. Reviewed EKG personally. EKG #2: 89 bpm. Normal sinus rhythm. Reviewed EKG personally. Chest x-ray, viewed personally: EXAM: PORTABLE CHEST 1 VIEW COMPARISON: Chest radiograph performed 05/23/2014 FINDINGS: The lungs are well-aerated and clear. There is no evidence of focal opacification, pleural effusion or pneumothorax. The cardiomediastinal silhouette is within normal limits. No acute osseous abnormalities are seen. IMPRESSION: No acute cardiopulmonary process seen. - Assessment (1) Bupropion overdose T43.291A - POISONING BY OTH ANTIDEPRESSANTS, ACCIDENTAL, INIT Acute Present on Admission: Yes Qualifiers: Encounter type: initial encounter Patient denies suicidal or homicidal ideation. He took the handful of Wellbutrin pills impulsively. He may have had an episode of either syncope or seizure-like activity, but it is thought less likely because he does remember the event. He did have some was are behavior of running around outside and falling into a river. He does not appear to be suicidal at the time of admission. Contracted for safety with the patient. Plan: Discussed case in detail with Poison Control center, who recommended 24 hr observation from the last pill ingested. Telemetry. Monitor for arrhythmias. Periodic neuro checks. Monitor for any seizure activity. Hold all home medications. Mental health consult. Patient counseled not to take medication other than exactly as it is prescribed. (2) Leukocytosis D72.829 - ELEVATED WHITE BLOOD CELL COUNT, UNSPECIFIED Acute Present on Admission: Yes Etiology unclear. Patient denies any fever or chills. He does not have any localizing symptoms that would indicate an area of infection. Plan: Cultures ordered. Monitor for any signs of infection. (3) Hypokalemia E87.6 - HYPOKALEMIA Acute Present on Admission: Yes Replace potassium with KCl. Check magnesium level and replace as needed. (4) Metabolic encephalopathy G93.41 - METABOLIC ENCEPHALOPATHY Acute Present on Admission: Yes Appears to have had an episode after taking the Wellbutrin in which he was acting erratically. Patient seems to have some mild confusion about events. Plan: Periodic neuro checks. - Plan In summary, this patient is acutely and critically ill. The patient requires treatment of vital organ failure and measures to prevent further life- threatening deterioration of condition. I have spent 60 min in the critical care of this patient. Case Care Discussed with: Patient, Nursing Staff Total Time: 60 min Critical Care: Yes Code: 291
--- NOTE | 2016-12-17 06:22 | DIRPT ---
CLINICAL DATA: Status post overdose of medication. Leukocytosis. Initial encounter. EXAM: PORTABLE CHEST 1 VIEW COMPARISON: Chest radiograph performed 05/23/2014 FINDINGS: The lungs are well-aerated and clear. There is no evidence of focal opacification, pleural effusion or pneumothorax. The cardiomediastinal silhouette is within normal limits. No acute osseous abnormalities are seen. IMPRESSION: No acute cardiopulmonary process seen. Electronically Signed By: Raman Marin M.D. On: 12/17/2016 06:19
[2016-12-17] MEDS ORDERED: Vaccine Screening Complete SCH (07:00)
[2016-12-17] MEDS ORDERED: Docusate Sodium 100 MG CAP PO PRN (08:45)
[2016-12-17] MEDS ORDERED: GUAIFEN 100 MG-DEXTROMETH 10 MG PER 5 ML PO PRN (08:45)
[2016-12-17] MEDS ORDERED: ACETAMINOPHEN 325 MG SUPP PR PRN (08:45)
[2016-12-17] MEDS ORDERED: TEMAZEPAM 15 MG CAP PO PRN (08:45)
[2016-12-17] MEDS ORDERED: SENNA CONCENTRATE TAB PO PRN (08:45)
[2016-12-17] MEDS ORDERED: SIMETHICONE 80 MG TAB PO PRN (08:45)
[2016-12-17] MEDS ORDERED: BISACODYL 5 MG TAB PO PRN (08:45)
[2016-12-17] MEDS ORDERED: BENZONATATE 100 MG PERLES PO PRN (08:45)
[2016-12-17] MEDS ORDERED: PROMETHAZINE 25 MG/ML VIAL IV PRN (08:45)
[2016-12-17] MEDS ORDERED: ACETAMINOPHEN 325 MG/TAB TABLET PO PRN (08:45)
[2016-12-17] MEDS: ESCITALOPRAM OXALATE 10 MG TAB PO SCH (09:24)
[2016-12-17] MEDS: POTASSIUM CHLORIDE 20 MEQ TAB PO SCH ×3 (09:25→11:27)
[2016-12-17] MEDS: NS/KCl 20 mEq 1,000 ML IV SCH ×2 (09:25→17:33)
--- NOTE | 2016-12-17 11:41 | CAPUEKG ---
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
[2016-12-17] MEDS ORDERED: ALPRAZOLAM 0.25 MG TAB PO ONE (15:36)
[2016-12-17] MEDS ORDERED: CHLORHEXIDINE (HIBICLENS) 4 OZ BOTTLE TOP SCH (21:00)
[2016-12-18] MEDS: NS/KCl 20 mEq 1,000 ML IV SCH (01:37)
[2016-12-18 04:50] LABS: MPV 8.5 fL (7.4-10.4)
[2016-12-18 05:06] LABS: BLOOD UREA NITROGEN 6 MG/DL (9-20); CALCIUM 8.7 MG/DL (8.4-10.2); CALCULATED OSMOLALITY 268 MOs/Kg (270-290); CHLORIDE 108 mEq/L (98-107); GLUCOSE 84 mg/dL (70-99); SODIUM LEVEL 141 mEq/L (137-146)
[2016-12-18 07:21] VITALS: TEMP 98.1
--- NOTE | 2016-12-18 07:50 | PCM.DCS92 ---
- Final/Secondary Discharge Diagnosis (1) Bupropion overdose Acute T43.291A - POISONING BY OTH ANTIDEPRESSANTS, ACCIDENTAL, INIT Present on Admission: Yes initial encounter Comment: Denies suicidal homicidal ideation. Has been seen by mental health and felt to be safe to continue be followed as an outpatient for substance abuse. Monitor for 24 hours and has been stable since admission. Stable for discharge home (2) Hypokalemia Acute E87.6 - HYPOKALEMIA Present on Admission: Yes Comment: Repleted. Now 4.0 (3) Leukocytosis Acute D72.829 - ELEVATED WHITE BLOOD CELL COUNT, UNSPECIFIED Present on Admission: Yes leukemoid reaction D72.823 - Leukemoid reaction Comment: Resolved. (4) Metabolic encephalopathy Acute G93.41 - METABOLIC ENCEPHALOPATHY Present on Admission: Yes Comment: Resolved. At baseline cognitive status. Discharge Disposition: Home Discharge Condition: Improved Cognitive Discharge Status: Unimpaired Fuctional Discharge Status: Independent Physician Follow up/Referrals: Samina Valles MD [NonStaff] - 01/04/17 1:50 pm (Please arrived 15 minutes prior to appointmet to fill out paperwork. If you cannot keep this appointment, please call the office at least 24 hours prior to your appointment to cancel. [facility] Internal Medicine [address] [place] [address] ) Home Medications / New Prescriptions: Continue Escitalopram Oxalate [Lexapro] 10 mg PO DAILY Bupropion HCl [Bupropion Xl] 150 mg PO DAILY Oxycodone HCl [Oxycodone Immediate Release] 10 mg PO Q6H PRN PRN Reason: Pain O2 Device: Room Air Diet at Discharge: As Tolerated Activity: As Tolerated Call Office For: Worsening Symptoms - DC Summary Notes Hospital Course Note:: Discharge summary on patient named CHRISTIE ASTUDILLO admitted to [facility] on 12/17/16 by Nishant Wild MD. Date of discharge is []. Mr. Astudillo is a 26-year-old male with history of polysubstance abuse who is admitted with unintentional overdose. He apparently again in an argument with his girlfriend and intake and fiber 6 extra doses of Wellbutrin to help him deal with the extra stress and anxiety. He was found to be lethargic and disoriented and poison Control recommended hospitalization so he was admitted to the hospital for further evaluation and management. He was started on IV fluids provided supportive care. He confirms that he was not intending to harm himself in any way. Mental health has seen him in confirms this assessment feels that he is safe for discharge home. They will continue to monitor him as an outpatient. Have counseled patient on the importance of cessation of all his substance abuse activities. Total Time: 45 minutes - Physical Exam Vital Signs: Last Vital Signs Temp 98.1 F 12/18/16 07:00 Pulse 75 12/18/16 07:00 Resp 20 12/18/16 07:00 BP 113/58 L 12/18/16 07:00 Pulse Ox 100 12/18/16 07:00 Oxygen Pulse Oxygen Saturation 100 O2 Device Room Air Oxygen Flow Rate Fraction of Inspired Oxygen ( FIO2) Constitutional: No apparent distress, Alert, Well nourished, Well appearing Oriented to: Time, Person, Place - HEENT Head: Normal Eye: Normal Oropharynx: Normal. negative: Membranes Dry - Respiratory/Cardiovascular Respiratory: Normal - CTA Cardiovascular: Normal - GI Auscultation: Normal Palpation: Normal Tenderness: Non tender - Musculoskeletal Back: Normal Extremities: Normal - Integumentary Skin: Warm, Dry Lymphatics: Normal - Neurologic Memory Impaired: Normal Motor Function: Normal Cranial Nerve: Normal Cerebellar: Normal. negative: Ataxia, Past-Pointing, Tremor Mood Description: Calm Thought: Coherent Perception: Normal
[2016-12-18] MEDS: ESCITALOPRAM OXALATE 10 MG TAB PO SCH (08:07)
[2016-12-18 09:40] VITALS: BP 119/56; PULSE 83
== END 2016-12-18 09:54 | disposition home or self-care (01) | DRG 917 ==
LOC: ED 03:38 → ICU 05:51
PROVIDERS: ADMIT Internal Medicine; ATTEND Hospitalist
DX: T43.291A Poisoning by other antidepressants, accidental (unintentional), initial encounter (principal); G93.41 Metabolic encephalopathy; Y92.9 Unspecified place or not applicable; E87.6 Hypokalemia; D72.89 Other specified disorders of white blood cells; F19.10 Other psychoactive substance abuse, uncomplicated; F32.9 Major depressive disorder, single episode, unspecified; F41.9 Anxiety disorder, unspecified; Z88.6 Allergy status to analgesic agent
CPT/HCPCS: 36415; 71010; 80048; 80053; 80307; 80329; 83735; 85025; 85027; 87040; 87086; 93005; 99284; 99406; J3490; J7040